=== PATIENT | female | born 1990 | race Caucasian/White ===

== ENCOUNTER → 2017-10-17 | Outpatient (CLI) | payer BC ==
--- NOTE | 2017-10-17 13:44 | Diagnostic Imaging Report ---
INDICATION: survey. TECHNIQUE: Multiple real-time grayscale images were obtained over the gravid uterus. COMPARISON: None FINDINGS: There is a single live fetus in a transverse presentation with head to the maternal right. Placenta is anterior. The amniotic fluid volume is normal. heart rate was recorded at 147 beats per minute. survey demonstrates kidneys, bladder, and stomach to be unremarkable. brain is unremarkable. There is a three-vessel cord with normal cord insertion. The spine is unremarkable. The four-chamber heart view is not well seen on today's study. Biometrical measurements are as follows: Biparietal 4.83 cm, age 20 weeks 5 days. Head circumference 17.82 cm, age 20 weeks 2 days. Abdominal circumference 15.60 cm, age 20 weeks 6 days. Femur length 3.70 cm, age 21 weeks 6 days. Sonographic estimate age: 21 weeks 0 days. Sonographic estimated date of delivery: 02/27/18. Estimated Weight: 400 gm (+/- 58 gm). LMP percentile: 82%. heart rate: 147 beats per minute. number: 1 of 1. IMPRESSION: Single live IUP of approximately 21 weeks 0 days gestational age. The estimated date of confinement sonographically is 02/27/2018. No complicating features are seen. survey is unremarkable, although the four-chamber heart view is not well seen on today's study. Followup ultrasound is recommended. Dictated by: Dictated on workstation # [id number]
== END ==
LOC: RAD 09:51
PROVIDERS: ATTEND Obstetrics & Gynecology
DX: Z36.89 Encounter for other specified antenatal screening (principal); Z3A.21 21 weeks gestation of pregnancy
CPT/HCPCS: 76805

== ENCOUNTER 2018-03-07 06:26 | Inpatient (IN) | payer BC ==
[~2018-03-07] VITALS: Ht 149.9 cm; Wt 87.6 kg
[2018-03-07] VITALS (62 sets, daily range): BP systolic 103–157; BP diastolic 55–99
[2018-03-07] MEDS ORDERED: PREN-142 PO (06:29)
[2018-03-07] MEDS ORDERED: FAMO40TA72 PO (06:29)
[2018-03-07] MEDS: D5 LR IV SOLUTION 1,000 ML IV SCH ×2 (07:53→15:12)
[2018-03-07 08:07] LABS: BASOPHILS % (AUTO) 0 % (0-10); EOSINOPHILS # (AUTO) 0.1 10^3/uL (0.0-0.3); EOSINOPHILS % (AUTO) 1 % (0-10); HEMATOCRIT 35 % (35-52); HEMOGLOBIN 11.9 G/DL (11.5-16.0); LYMPHOCYTES # (AUTO) 3.2 X 10^3 (1.0-4.0); LYMPHOCYTES % (AUTO) 24 % (12-44); MEAN CORPUSCULAR HEMOGLOBIN 30 PG (25-34); MEAN CORPUSCULAR HGB CONC 34 G/DL (32-36); MEAN CORPUSCULAR VOLUME 87 FL (80-99); MEAN PLATELET VOLUME 11.4 FL (7.4-10.4); MONOCYTES # (AUTO) 1.3 X 10^3 (0.0-1.0); MONOCYTES % (AUTO) 10 % (0-12); NEUTROPHILS # (AUTO) 8.9 X 10^3 (1.8-7.8); NEUTROPHILS % (AUTO) 66 % (42-75); PLATELET COUNT 286 10^3/uL (130-400); RED BLOOD COUNT 4.02 10^6/uL (4.35-5.85); WHITE BLOOD COUNT 13.6 10^3/uL (4.3-11.0)
[2018-03-07] MEDS ORDERED: OXYTOCIN/NORMAL SALINE 500 ML IV SCH (08:30)
--- NOTE | 2018-03-07 08:45 | History & Physical-OB ---
OB - Chief Complaint & HPI Date/Time Date of Admission: Date of Admission: Mar 07, 2018 at 6:26 am Date seen by a Provider: Mar 07, 2018 Time Seen by a Provider: 08:30 Chief Complaint/History OB-Reason for Admission/Chief: Induction of Labor Hx : 1 Hx Para: 0 Expected Date of Delivery: Mar 03, 2018 Gestational Age in Weeks: 40 Gestational Age in Days: 4 Indication for induction: post dates Admission Nurse Assessment Rev: Yes History of Labs O pos Antibody neg RI RPR NR HBsAg NR HIV NR GC neg GBS neg Allergies and Home Medications Allergies Coded Allergies: No Known Drug Allergies (Unverified , 03/07/18) Home Medications Famotidine 40 Mg Tablet, 40 MG PO DAILY, (Reported) Vit No.124/Iron/FA 1 Each Tablet, 1 EACH PO DAILY, (Reported) Patient Home Medication List Home Medication List Reviewed: Yes OB - History Hx of Present Care: Yes Ultrasounds: Normal mid trimester US Obstetrical Complications: None Medical Complications: None Delivery History Adverse Rxn to Tranfusion: No Patient Past Medical History n/a Social History/Family History Recent Infectious Disease Expo: No Alcohol Use: Denies Use Recreational Drug Use: No OB - Admission Exam Physical Exam Vitals: Vital Signs 03/07/18 06:30 Temp 98.5 Pulse 100 Resp 18 B/P (MAP) 123/75 (91) HEENT: NCAT Heart: Rhythm Normal Lungs: Clear Abdomen: Gravid Extremities: Normal Reflexes: Normal Cervical Dilatation: 3cm Effacement: 75% Station: -2 Membranes: Intact Heart Rate: 130's Accelerations: Accelerations Present Decelerations: No Decelerations Short Term Variability: Present Supply Technician Variability: Average (6-25) Contractions on Admission: 6-10 Minutes Apart Intensity: Mild Walls Scoring Tool (Modified) Dilation (cm): 3-4cm (2) Effacement (%): 51-79% (2) Descent/Station: -2 (1) Cervix Consistency: Soft (2) Cervix Position: Anterior (2) Subtract 1 point for: Nulliparity (-1) Walls Score: 8 Labs Laboratory Tests Test 03/07/18 06:34 Range/Units White Blood Count 13.6 H 4.3-11.0 10^3/uL Red Blood Count 4.02 L 4.35-5.85 10^6/uL Hemoglobin 11.9 11.5-16.0 G/DL Hematocrit 35 35-52 % Mean Corpuscular Volume 87 80-99 FL Mean Corpuscular Hemoglobin 30 25-34 PG Mean Corpuscular Hemoglobin Concent 34 32-36 G/DL Red Cell Distribution Width 14.0 10.0-14.5 % Platelet Count 286 130-400 10^3/uL Mean Platelet Volume 11.4 H 7.4-10.4 FL Neutrophils (%) (Auto) 66 42-75 % Lymphocytes (%) (Auto) 24 12-44 % Monocytes (%) (Auto) 10 0-12 % Eosinophils (%) (Auto) 1 0-10 % Basophils (%) (Auto) 0 0-10 % Neutrophils # (Auto) 8.9 H 1.8-7.8 X 10^3 Lymphocytes # (Auto) 3.2 1.0-4.0 X 10^3 Monocytes # (Auto) 1.3 H 0.0-1.0 X 10^3 Eosinophils # (Auto) 0.1 0.0-0.3 10^3/uL Basophils # (Auto) 0.0 0.0-0.1 10^3/uL OB - Assessment/Plan/Diagnosis Assessment Assessment: induction of labor Admission Dx 27 yo @ 40.4 weeks. Post dates GBS neg Admission Status: Inpatient Order (span 2 midnights) Reason for Inpatient Admission: induction of labor Postdates Plan Plan: Induction Induction Method: CHICO JIMENEZ DO Mar 07, 2018 8:45 am
[2018-03-07] MEDS ORDERED: SUFENTA 0.6MCG/ML BUPIVA 0.125 100 ML ONE (09:06)
[2018-03-07] MEDS ORDERED: BUPIVACAINE 0.5% 30 ML (SENSORCAINE) VIAL ONE ×2 (09:40→21:34)
[2018-03-07] MEDS ORDERED: fentaNYL INJECTION 100 MCG/2 ML AMP ONE ×2 (09:40→21:25)
[2018-03-07] MEDS ORDERED: FLU QUADRIvalent (5+ YOA) 2018-2019 (AFLURIA) 0.5 ML IM ONE (10:00)
[2018-03-07] MEDS: EPIDURAL (SUFENTA 0.6MCG/ML BUPIVA 0.125%) 100 ML BAG EPI SCH ×2 (10:08→19:15)
[2018-03-07] MEDS ORDERED: LACTATED RINGERS 1,000 ML IV ONE (10:13)
[2018-03-07] MEDS ORDERED: CATHETER FLUSH 10 ML SYR IV PRN ×2 (10:15→20:30)
[2018-03-07] MEDS ORDERED: NALOXONE 0.4 MG/ML 1 ML (NARCAN) VIAL IV PRN (10:15)
[2018-03-07] MEDS: CATHETER FLUSH 10 ML SYR IV SCH (17:05)
[2018-03-07] MEDS ORDERED: ONDANSETRON 4 MG/2 ML (SDV) Z0FRAN ONE ×2 (19:18→20:50)
[2018-03-07] MEDS ORDERED: ONDANSETRON 4 MG/2 ML (SDV) Z0FRAN IV ONE (19:24)
[2018-03-07] MEDS ORDERED: METOCLOPRAMIDE INJ 10 MG/2 ML (REGLAN) ONE (20:08)
[2018-03-07] MEDS ORDERED: FAMOTIDINE 20MG/2ML IV (PEPCID) ONE (20:09)
[2018-03-07] MEDS ORDERED: CITRIC ACID/SOB CIT (BICITRA) 30 ML UDC ONE (20:09)
[2018-03-07] MEDS ORDERED: ceFAZolin 2 GM IV Premixed 50 ML ONE (20:10)
[2018-03-07] MEDS ORDERED: MEASLES,MUMPS,RUBELLA 1 EA INJ SC SCH (20:15)
[2018-03-07] MEDS ORDERED: HYDROmorphone 2 MG/ML VIAL (DILAUDID) IV PRN (20:15)
[2018-03-07] MEDS ORDERED: ONDANSETRON 4 MG/2 ML (SDV) Z0FRAN IVP PRN (20:15)
[2018-03-07] MEDS ORDERED: TETANUS,DIPTH,PERTUSS P/F (BOOSTRIX) 0.5 ML VIAL IM SCH (20:15)
[2018-03-07] MEDS ORDERED: LACTATED RINGERS 1,000 ML IV PRN (20:19)
--- NOTE | 2018-03-07 20:20 | Progress Note-Standard ---
Standard Progress Note Progress Notes/Assess & Plan Date Seen by a Provider: Mar 07, 2018 Time Seen by a Provider: 20:16 Progress/Assessment & Plan Patient admitted this morning for induction of labor for postdates, 2. She had AROM and Pitocin augmentation started this AM, and received an epidural around 10am this morning. She progressed to 9-10 with a reducible cervix at 1800, she was let to labor down with 2-3 ctxs min. At 1999 she was reevaluated and found to have made no cervical change and was feeling very uncomfortable, epidural had been rebolused several times. There was also significant labial swelling noted at this point consistent with CPD. I discussed with the patient and her family proceeding with PLTCS, risk involved discussed, vs waiting delivery. All questions answered. Will proceed once OR staff here and available. CHICO SCHULTZ DO Mar 07, 2018 20:20
--- NOTE | 2018-03-07 20:21 | Discharge Inst-Women's Service ---
Discharge Inst-Women's Serv Depart Medication/Instructions New, Converted or Re-Newed RX: RX on Chart Final Diagnosis POD 2 PLTCS Consults/Follow Up Additional Follow Up: Yes Orders/Referrals Dr. Higgins in 7-10 days and in 6 weeks Activity Activity: Activity as Tolerated Driving Instructions: No Driving for 1 Week NO SMOKING: NO SMOKING Nothing Inside Vagina: No Douching, No [place], No Tampons Diet Discharge Diet: No Restrictions Symptoms to Report to : Bleeding Excessive, Pain Increased, Fever Over 101 Degrees F, Vaginal Bleeding Increase, Questions/Concerns For Any Problems or Questions: Contact Your Physician Skin/Wound Care Infection Signs and Symptoms: Increased Redness, Foul Odor of Wound, Increased Drainage, Skin Itchy or Has a Rash, Increased Swelling, Temperature Above 101 F Operative Area Clean and Dry: Keep Incision Clean/Dry Stitches/[place]/Dermabond: Dermabond, Care of Stitches Bathing Instructions: CHICO Murcia DO Mar 07, 2018 20:21
[2018-03-07] MEDS ORDERED: IBUP-844 PO (20:22)
[2018-03-07] MEDS ORDERED: DOCU100C37 PO (20:22)
[2018-03-07] MEDS ORDERED: ACHD5005 PO (20:22)
[2018-03-07] MEDS ORDERED: CITRIC ACID/SOB CIT (BICITRA) 30 ML UDC PO ONE (20:30)
[2018-03-07] MEDS ORDERED: METOCLOPRAMIDE INJ 10 MG/2 ML (REGLAN) IV ONE (20:30)
[2018-03-07] MEDS ORDERED: FAMOTIDINE 20MG/2ML IV (PEPCID) IV ONE (20:30)
[2018-03-07] MEDS ORDERED: LIDOCAINE PF 2% 5 ML (XYLOCAINE) VIAL ONE (20:39)
[2018-03-07] MEDS ORDERED: OXYTOCIN/NORMAL SALINE 1,000 ML IV ONE (20:47)
[2018-03-07] MEDS ORDERED: KETAMINE HCL 100 MG/ML 5 ML VIAL ONE (20:54)
[2018-03-07] MEDS ORDERED: 0.9% SODIUM CHLORIDE PF INJ 20 ML VIAL ONE (21:28)
[2018-03-07] MEDS ORDERED: CATHETER FLUSH 10 ML SYR IV SCH (22:00)
--- NOTE | 2018-03-07 22:46 | OPERATIVE REPORT ---
DATE OF SERVICE: PREOPERATIVE DIAGNOSES: 1. A 27-year-old G1, P0 at 40 weeks and 3 days gestation. 2. Cephalopelvic disproportion and failure to descend. POSTOPERATIVE DIAGNOSES: 1. A 27-year-old G1, P0 at 40 weeks and 3 days gestation. 2. Cephalopelvic disproportion and failure to descend. 3. Occiput posterior. PROCEDURE: Primary low transverse section. SURGEON: Willie Higgins DO ANESTHESIA: Epidural, which was bolused. ESTIMATED BLOOD LOSS: 500 mL. URINE OUTPUT: 200 mL, clear at the end of the procedure. FLUIDS: 1100 mL of lactate Ringer's solution. FINDINGS: Live female infant weighing 8 pounds 10 ounces, Apgars of 8 and 9. Grossly normal appearing uterus, bilateral fallopian tubes and ovaries. INDICATIONS FOR PROCEDURE: This 27-year-old female is a patient was brought in for induction of labor for postdates and found to have a favorable cervix and induction time. AROM was performed and Pitocin augmentation was started this morning. She progressed all the way to 9 to 10 cm dilatation; however, there was no descent in the vertex. Despite two hours of allowing to labor down, there was no change and there was also some labial swelling noted. I had suspicion for cephalopelvic disproportion and an asynclitic presentation. I discussed with the patient and proceeded with . Risks of procedure were discussed with the patient in detail including risks of bleeding, infection, damage to surrounding structures including, but not limited to bowel, bladder, ureter, kidneys, postoperative and preoperative expectations, postoperative recovery time frame, need for blood transfusion and risk of anesthesia were all discussed with the patient. After all of her questions were answered, consent was obtained. The patient was taken to the operating room. OPERATIVE REPORT IN DETAIL: Once in the operating room, epidural anesthesia was found to be adequate. She was placed in supine position with leftward tilt, prepped and draped in normal sterile fashion. A timeout was performed. A Pfannenstiel skin incision was then made with a knife and carried down to the underlying fascia using Bovie cautery. Fascial incision extended laterally using Bovie cautery. Superior aspect of the fascial incision was then grasped with Brenda clamps, tented up and dissected off the underlying rectus muscles. The inferior aspect of the fascial incision was then grasped with Brenda clamps, tented up and dissected off the underlying rectus muscles. Rectus muscle was then dissected down the midline using Trejo scissors, which exposed the peritoneum which I entered bluntly and extended using blunt traction. I then placed the Mike ring retractor in the peritoneal incision, which offered excellent lateral sidewall retraction. I make an incision of the vesicouterine peritoneum and bluntly dissected off the lower uterine segment. I proceeded with myotomy until membranes were visualized at which point, I extended the uterine incision laterally and superiorly using bandage scissors. Iatrogenic rupture of membranes was performed through the myotomy incision. The was found in the occiput posterior presentation. The surgeon's hands then placed beneath the infant's head. With gentle fundal pressure, the 's head was elevated up to the incision where it was delivered. The nares and oropharynx were then bulb suctioned. Anterior and posterior shoulders were delivered. Infant was then brought to the operative field where the cord was doubly clamped and cut. was handed off to waiting nurses in attendance. Cord blood was collected. A 3-vessel cord with intact placenta delivered spontaneously thereafter. IV Pitocin was initiated to facilitate uterine contraction. Uterus fundus becomes firmer with bimanual massage. The uterus was then exteriorized and cleared of all endometrial clots and debris. The uterus was then closed using 0 Vicryl suture in a running locked fashion. A second layer of imbricating 0 Monocryl was placed. Excellent hemostasis was noted after doing this. I then placed the uterus back into the pelvis and copiously irrigated the pelvis using normal saline. There is no active bleeding noted from any of my dissection planes. I then placed Interceed antiadhesive over low transverse incision and proceeded with closing the peritoneum using 3-0 Vicryl suture in running fashion. The rectus muscle was reapproximated using 3-0 Vicryl suture in interrupted fashion. The fascia reapproximated using 0 Vicryl suture in running fashion. Subcutaneous tissue reapproximated using 3-0 plain in a running subcutaneous stitch and the skin reapproximated using 4-0 Monocryl in running subcuticular. Dermabond was applied to the incision and sterile dressing with adhesive white tape. The patient tolerated the procedure well and sent to recovery area in stable condition. Lap and sponge count correct at the end of the procedure. Instrument counts correct as well. Two grams of Ancef given preoperatively for infection prophylaxis. Job ID: [id number] DocumentID: [id number] Dictated Date: 03/07/2018 21:43:15 Supervisor [place] Date: 03/07/2018 22:45:11 Dictated By: DO ESTELLA CALDERA
[2018-03-08 01:00] VITALS: BP 134/81
[2018-03-08] MEDS: HYDROcodone/APAP 5 MG/325 MG (LORTAB) TAB PO PRN ×5 (01:01→19:47)
[2018-03-08] MEDS: KETOROLAC 30 MG/ML VIAL IVP SCH ×3 (03:29→14:47)
[2018-03-08 04:00] VITALS: BP 127/73
[2018-03-08 06:08] LABS: BASOPHILS % (AUTO) 0 % (0-10); EOSINOPHILS % (AUTO) 0 % (0-10); HEMATOCRIT 29 % (35-52); HEMOGLOBIN 10.1 G/DL (11.5-16.0); LYMPHOCYTES # (AUTO) 3.3 X 10^3 (1.0-4.0); LYMPHOCYTES % (AUTO) 17 % (12-44); MEAN CORPUSCULAR HEMOGLOBIN 30 PG (25-34); MEAN CORPUSCULAR HGB CONC 35 G/DL (32-36); MEAN CORPUSCULAR VOLUME 87 FL (80-99); MEAN PLATELET VOLUME 11.1 FL (7.4-10.4); MONOCYTES # (AUTO) 2.2 X 10^3 (0.0-1.0); MONOCYTES % (AUTO) 12 % (0-12); NEUTROPHILS # (AUTO) 13.2 X 10^3 (1.8-7.8); NEUTROPHILS % (AUTO) 71 % (42-75); PLATELET COUNT 227 10^3/uL (130-400); RED BLOOD COUNT 3.34 10^6/uL (4.35-5.85); RED CELL DISTRIBUTION WIDTH 13.6 % (10.0-14.5); WHITE BLOOD COUNT 18.8 10^3/uL (4.3-11.0)
[2018-03-08 07:20] VITALS: BP 117/78
[2018-03-08] MEDS: DOCUSATE SODIUM 100 MG (COLACE) CAP PO SCH ×3 (07:45→19:47)
--- NOTE | 2018-03-08 08:25 | Anesthesia-Regional Post-Op ---
Regional Patient Condition Mental Status: Alert, Oriented x3 Circulation: Same as Pre-Op Headache: Absent Sensation: Full Recovery Motor Block: Absent Post Op Complications Complications None Follow Up Care/Instructions Patient Instructions None needed. Anesthesia/Patient Condition Patient is doing well, no complaints, stable vital signs, no apparent adverse anesthesia problems. No complications reported per nursing. JANINE MAGAÑA CRNA Mar 08, 2018 08:25
--- NOTE | 2018-03-08 09:19 | Postpartum Progress Note ---
Note Note Day # 1 Subjective: Patient is without complaints. Ambulating, voiding. Tolerating a regular diet without nausea or vomiting. Normal lochia. Pain is well controlled with oral pain medications. Objective: Vital Sign - Last 24 Hours 03/07/18 03/07/18 03/07/18 03/07/18 09:30 09:45 09:50 09:55 Pulse 78 83 87 85 Resp 18 18 B/P (MAP) 131/84 (100) 157/89 (111) 144/86 (105) 141/84 (103) Pulse Ox 100 99 98 03/07/18 03/07/18 03/07/18 03/07/18 10:00 10:03 10:06 10:15 Pulse 90 93 90 96 Resp 18 18 B/P (MAP) 142/84 (103) 135/86 (102) 135/75 (95) 129/73 (91) Pulse Ox 99 98 98 99 03/07/18 03/07/18 03/07/18 03/07/18 10:17 10:18 10:19 10:20 Pulse 82 90 70 B/P (MAP) 103/55 (71) 113/59 (77) 129/57 (81) 138/74 (95) Pulse Ox 98 98 98 03/07/18 03/07/18 03/07/18 03/07/18 10:23 10:26 10:30 10:33 Temp 97.7 Pulse 74 84 75 70 Resp 18 B/P (MAP) 129/74 (92) 127/74 (91) 126/77 (93) 126/77 (93) Pulse Ox 98 98 99 98 03/07/18 03/07/18 03/07/18 03/07/18 10:45 10:50 10:55 11:00 Pulse 70 68 73 75 Resp 18 18 B/P (MAP) 132/83 (99) 130/76 (94) 109/71 (84) 114/77 (89) Pulse Ox 99 98 100 99 03/07/18 03/07/18 03/07/18 03/07/18 11:05 11:10 11:15 11:30 Pulse 67 74 75 71 Resp 18 18 B/P (MAP) 121/78 (92) 119/76 (90) 119/75 (90) 138/80 (99) Pulse Ox 99 99 100 99 03/07/18 03/07/18 03/07/18 03/07/18 11:45 12:00 12:15 12:30 Temp 97.9 Pulse 71 63 64 Resp 18 18 18 B/P (MAP) 134/83 (100) 143/80 (101) 126/79 (95) Pulse Ox 99 99 100 03/07/18 03/07/18 03/07/18 03/07/18 12:45 13:00 13:15 13:30 Pulse 67 69 69 69 Resp 18 18 18 18 B/P (MAP) 140/76 (97) 123/75 (91) 118/73 (88) 124/75 (91) Pulse Ox 99 99 99 99 03/07/18 03/07/18 03/07/18 03/07/18 13:45 14:00 14:15 14:30 Temp 98.6 Pulse 78 93 86 97 Resp 18 18 18 18 B/P (MAP) 127/76 (93) 126/77 (93) 133/85 (101) 133/85 (101) Pulse Ox 97 98 99 99 03/07/18 03/07/18 03/07/18 03/07/18 14:45 15:00 15:15 15:30 Pulse 97 97 79 93 Resp 18 18 18 18 B/P (MAP) 133/85 (101) 133/85 (101) 125/76 (92) 131/79 (96) Pulse Ox 99 100 99 99 03/07/18 03/07/18 03/07/18 03/07/18 15:45 16:00 16:15 16:30 Pulse 86 82 85 78 Resp 18 18 18 18 B/P (MAP) 142/79 (100) 113/70 (84) 120/64 (82) 121/63 (82) Pulse Ox 98 100 100 99 03/07/18 03/07/18 03/07/18 03/07/18 16:45 17:00 17:15 17:30 Temp 99.0 Pulse 74 73 79 74 Resp 18 18 18 18 B/P (MAP) 110/63 (79) 128/73 (91) 136/76 (96) 140/80 (100) Pulse Ox 99 99 99 99 10/3/18 10/3/18 10/3/18 10/3/18 17:45 18:00 18:15 18:30 Pulse 106 88 90 118 Resp 18 18 18 18 B/P (MAP) 135/89 (104) 136/90 (105) 145/90 (108) Pulse Ox 99 99 03/07/18 03/07/18 03/07/18 03/07/18 18:45 19:00 19:05 19:20 Temp 98.2 Pulse 110 90 Resp 18 18 B/P (MAP) 144/95 (111) 137/91 (106) 03/07/18 03/07/18 03/07/18 03/07/18 19:35 19:50 20:05 20:20 Temp 98.7 Pulse 103 90 113 83 Resp 18 18 18 18 B/P (MAP) 135/73 (93) 133/82 (99) 135/99 (111) 142/91 (108) 03/07/18 03/07/18 03/08/18 03/08/18 20:35 20:50 00:01 01:00 Temp 98.6 Pulse 113 83 97 Resp 18 18 18 B/P (MAP) 138/89 (105) 132/78 (96) 134/81 (98) Pulse Ox 98 O2 Delivery Room Air 03/08/18 03/08/18 04:00 07:20 Temp 97.1 97.8 Pulse 80 85 Resp 18 18 B/P (MAP) 127/73 (91) 117/78 (91) Pulse Ox 98 100 Intake and Output 03/07/18 03/07/18 03/08/18 15:00 23:00 07:00 Intake Total 1000 ml 1050 ml 500 ml Output Total 550 ml 700 ml Balance 1000 ml 500 ml -200 ml Physical Exam: General - Alert and oriented, no apparent distress Abdomen - Soft, appropriately tender to palpation, non-distended, fundus firm at umbilicus Extremities - no edema, negative Elieser's bilaterally Incision- c/d/i Assessment: POD 1 PLTCS Acute blood loss anemia Plan: Routine care. Encourage breast feeding. Encourage ambulation. Ferrous sulfate supplementation. Plan for discharge tomorrow Vitals - Labs Vital Signs - I&O Vital Signs Date Time Temp Pulse Resp B/P (MAP) Pulse Ox O2 Delivery O2 Flow Rate FiO2 03/08/18 07:20 97.8 85 18 117/78 (91) 100 03/08/18 04:00 97.1 80 18 127/73 (91) 98 03/08/18 01:00 98.6 97 18 134/81 (98) 98 03/08/18 00:01 Room Air 03/07/18 20:50 83 18 132/78 (96) 03/07/18 20:35 113 18 138/89 (105) 03/07/18 20:20 83 18 142/91 (108) 03/07/18 20:05 113 18 135/99 (111) 03/07/18 19:50 90 18 133/82 (99) 03/07/18 19:35 98.7 103 18 135/73 (93) 03/07/18 19:20 90 18 137/91 (106) 03/07/18 19:05 110 18 144/95 (111) 03/07/18 19:00 03/07/18 18:45 98.2 03/07/18 18:30 118 18 145/90 (108) 03/07/18 18:15 90 18 136/90 (105) 03/07/18 18:00 88 18 135/89 (104) 99 03/07/18 17:45 106 18 99 03/07/18 17:30 74 18 140/80 (100) 99 03/07/18 17:15 79 18 136/76 (96) 99 03/07/18 17:00 73 18 128/73 (91) 99 03/07/18 16:45 99.0 74 18 110/63 (79) 99 03/07/18 16:30 78 18 121/63 (82) 99 03/07/18 16:15 85 18 120/64 (82) 100 03/07/18 16:00 82 18 113/70 (84) 100 03/07/18 15:45 86 18 142/79 (100) 98 03/07/18 15:30 93 18 131/79 (96) 99 03/07/18 15:15 79 18 125/76 (92) 99 03/07/18 15:00 97 18 133/85 (101) 100 03/07/18 14:45 97 18 133/85 (101) 99 03/07/18 14:30 97 18 133/85 (101) 99 03/07/18 14:15 98.6 86 18 133/85 (101) 99 03/07/18 14:00 93 18 126/77 (93) 98 03/07/18 13:45 78 18 127/76 (93) 97 03/07/18 13:30 69 18 124/75 (91) 99 03/07/18 13:15 69 18 118/73 (88) 99 03/07/18 13:00 69 18 123/75 (91) 99 03/07/18 12:45 67 18 140/76 (97) 99 03/07/18 12:30 64 18 126/79 (95) 100 03/07/18 12:15 97.9 03/07/18 12:00 63 18 143/80 (101) 99 03/07/18 11:45 71 18 134/83 (100) 99 03/07/18 11:30 71 18 138/80 (99) 99 03/07/18 11:15 75 18 119/75 (90) 100 03/07/18 11:10 74 119/76 (90) 99 03/07/18 11:05 67 121/78 (92) 99 03/07/18 11:00 75 18 114/77 (89) 99 03/07/18 10:55 73 109/71 (84) 100 03/07/18 10:50 68 130/76 (94) 98 03/07/18 10:45 70 18 132/83 (99) 99 03/07/18 10:33 70 126/77 (93) 98 03/07/18 10:30 97.7 75 18 126/77 (93) 99 03/07/18 10:26 84 127/74 (91) 98 03/07/18 10:23 74 129/74 (92) 98 03/07/18 10:20 70 138/74 (95) 98 03/07/18 10:19 129/57 (81) 03/07/18 10:18 90 113/59 (77) 98 03/07/18 10:17 82 103/55 (71) 98 03/07/18 10:15 96 18 129/73 (91) 99 03/07/18 10:06 90 135/75 (95) 98 03/07/18 10:03 93 135/86 (102) 98 03/07/18 10:00 90 18 142/84 (103) 99 03/07/18 09:55 85 141/84 (103) 98 03/07/18 09:50 87 144/86 (105) 99 03/07/18 09:45 83 18 157/89 (111) 100 03/07/18 09:30 78 18 131/84 (100) I & O 03/08/18 07:00 Intake Total 2550 ml Output Total 1250 ml Balance 1300 ml Labs Laboratory Tests 03/08/18 05:26: White Blood Count 18.8H, Red Blood Count 3.34L, Hemoglobin 10.1L, Hematocrit 29L , Mean Corpuscular Volume 87, Mean Corpuscular Hemoglobin 30, Mean Corpuscular Hemoglobin Concent 35, Red Cell Distribution Width 13.6, Platelet Count 227, Mean Platelet Volume 11.1H, Neutrophils (%) (Auto) 71, Lymphocytes (%) (Auto) 17 , Monocytes (%) (Auto) 12, Eosinophils (%) (Auto) 0, Basophils (%) (Auto) 0, Neutrophils # (Auto) 13.2H, Lymphocytes # (Auto) 3.3, Monocytes # (Auto) 2.2H, Eosinophils # (Auto) 0.0, Basophils # (Auto) 0.0 CHICO SCHULTZ DO Mar 08, 2018 9:19 am
[2018-03-08] MEDS: OXYTOCIN/NORMAL SALINE 500 ML IV SCH ×2 (09:28→14:47)
[2018-03-08] MEDS: CATHETER FLUSH 10 ML SYR IV SCH (09:29)
[2018-03-08 12:27] VITALS: BP 129/87
[2018-03-08] MEDS ORDERED: IBUPROFEN 600 MG (MOTRIN) TAB PO ONE (14:56)
[2018-03-08] MEDS: IBUPROFEN 600 MG (MOTRIN) TAB PO SCH ×2 (15:02→21:59)
[2018-03-08 18:45] VITALS: BP 116/81
[2018-03-08] MEDS ORDERED: ceFAZolin 2 GM IV Premixed 50 ML IV ONE (20:15)
[2018-03-08 22:00] VITALS: BP 118/73
[2018-03-09 03:30] VITALS: BP 109/68
[2018-03-09] MEDS: IBUPROFEN 600 MG (MOTRIN) TAB PO SCH ×2 (03:35→11:04)
[2018-03-09] MEDS: HYDROcodone/APAP 5 MG/325 MG (LORTAB) TAB PO PRN (05:47)
--- NOTE | 2018-03-09 07:25 | Postpartum Progress Note ---
Note Note Day # 2 Subjective: Patient is without complaints. Ambulating, voiding. Tolerating a regular diet without nausea or vomiting. Normal lochia. Pain is well controlled with oral pain medications. Objective: Vital Sign - Last 24 Hours 03/08/18 03/08/18 03/08/18 03/09/18 12:27 18:45 22:00 03:30 Temp 98.3 97.5 97.9 98.9 Pulse 84 74 80 87 Resp 18 18 18 18 B/P (MAP) 129/87 (101) 116/81 (93) 118/73 (88) 109/68 (82) Pulse Ox 100 98 O2 Delivery Room Air Room Air Physical Exam: General - Alert and oriented, no apparent distress Abdomen - Soft, appropriately tender to palpation, non-distended, fundus firm at umbilicus Extremities - no edema, negative Elieser's bilaterally Incision- c/d/i Assessment: POD 2 PLTCS Acute blood loss anemia Plan: Routine care. Encourage breast feeding. Encourage ambulation. Ferrous sulfate supplementation. Plan for discharge today Vitals - Labs Vital Signs - I&O Vital Signs Date Time Temp Pulse Resp B/P (MAP) Pulse Ox O2 Delivery O2 Flow Rate FiO2 03/09/18 03:30 98.9 87 18 109/68 (82) 03/08/18 22:00 97.9 80 18 118/73 (88) Room Air 03/08/18 18:45 97.5 74 18 116/81 (93) 98 Room Air 03/08/18 12:27 98.3 84 18 129/87 (101) 100 CHICO SCHULTZ DO Mar 09, 2018 7:25 am
[2018-03-09 08:40] VITALS: BP 121/78
[2018-03-09] MEDS: DOCUSATE SODIUM 100 MG (COLACE) CAP PO SCH (08:42)
== END 2018-03-09 12:10 | disposition home or self-care (01) | DRG 787 ==
LOC: LDRP 06:26
PROVIDERS: ADMIT Obstetrics & Gynecology; ATTEND Obstetrics & Gynecology
PROC: 10907ZC Drainage of Amniotic Fluid, Therapeutic from Products of Conception, Via Natural or Artificial Opening (ICD-10-PCS; 2018-03-07)
PROC: 10D00Z1 Extraction of Products of Conception, Low, Open Approach (ICD-10-PCS; principal; 2018-03-07 21:00)
DX: O48.0 Post-term pregnancy (principal); O33.9 Maternal care for disproportion, unspecified; O64.0XX0 Obstructed labor due to incomplete rotation of fetal head, not applicable or unspecified; O90.81 Anemia of the puerperium; D62 Acute posthemorrhagic anemia; Z37.0 Single live birth; Z3A.40 40 weeks gestation of pregnancy
CPT/HCPCS: 36415; 85025; 86850; 86900; 86901; 94664

== ENCOUNTER → 2021-05-17 | Outpatient (CLI) | payer BC ==
[~2021-05-17] MED LIST: ACHD5005 PO; DOCU100C37 PO; FAMO40TA72 PO; IBUP-844 PO; PREN-142 PO
--- NOTE | 2021-05-17 17:50 | Diagnostic Imaging Report ---
INDICATION: Normal supervision of . Anatomy scan. TECHNIQUE: Multiple real-time grayscale images were obtained over the gravid uterus. COMPARISON: None. FINDINGS: A single live intrauterine gestation is visualized in cephalic presentation. The placenta is posterior and not low lying. heart tones measure 144 BPM. The cervix is closed and measures 5.7 cm in length. The CANDICE visually has a normal appearance, although no measurements were provided by the delivery motorcycle driver. The bilateral adnexa have a normal appearance. The kidneys, bladder, stomach, ventricles, spine, and cord insertion are visualized and have a normal appearance. A two-vessel cord is noted. The four-chamber heart was not well seen due to position. Biometrical measurements are as follows: Biparietal 4.8 cm, age 20 weeks 4 days. Head circumference 17.77 cm, age 20 weeks 2 days. Abdominal circumference 14.79 cm, age 20 weeks 1 days. Femur length 3.35 cm, age 20 weeks 4 days. Sonographic estimate age: 20 weeks 3 days. Sonographic estimated date of delivery: 10/01/2021. Estimated Weight: 343 gm (+/- 50 gm). LMP percentile: 14%. heart rate: 144 beats per minute. number: 1 of 1. IMPRESSION: 1. Single live intrauterine gestation measuring 20 weeks 3 days with an estimated due date of 10/01/2021. These are within range of the clinical dates. 2. The four-chamber heart is not well seen due to position. A two-vessel umbilical cord is noted. The remainder of the anatomy is unremarkable. Recommend continued follow-up as indicated. Dictated by: Dictated on workstation # [id number]
== END ==
LOC: RAD 14:30
PROVIDERS: ATTEND Obstetrics & Gynecology
DX: Z34.02 Encounter for supervision of normal first pregnancy, second trimester (principal); Z3A.20 20 weeks gestation of pregnancy
CPT/HCPCS: 76805

== ENCOUNTER → 2021-08-18 | Outpatient (CLI) | payer BC ==
--- NOTE | 2021-08-18 10:13 | Diagnostic Imaging Report ---
INDICATION: Follow-up for growth. History of two-vessel cord. TECHNIQUE: Multiple real-time grayscale images were obtained over the gravid uterus. COMPARISON: None FINDINGS: There is single live intrauterine fetus vertex presentation. The survey was not performed. heart rate 152 bpm. Cervical length is 6.4 cm. Cervix is not dilated. Amniotic fluid index is 10 cm. Placenta is posterior and not low. biophysical profile performed with motion noted and breathing. Biometrical measurements are as follows: Biparietal 8.52 cm, age 34 weeks 3 days. Head circumference 31.40 cm, age 35 weeks 2 days. Abdominal circumference 30.27 cm, age 34 weeks 2 days. Femur length 6.65 cm, age 34 weeks 2 days. Sonographic estimate age: 34 weeks 4 days. Sonographic estimated date of delivery: 09/25/2021. Estimated Weight: 2407 gm (+/- 352 gm). LMP percentile: 46%. heart rate: 152 beats per minute. number: 1 of 1. IMPRESSION: Normal biophysical profile scoring 8 of potential 8 points. Two-vessel umbilical cord again demonstrated. Dictated by: Dictated on workstation # [id number]
== END ==
LOC: RAD 09:00
PROVIDERS: ATTEND Nurse Practitioner Women's Health
DX: Q27.8 Other specified congenital malformations of peripheral vascular system (principal)
CPT/HCPCS: 76805; 76819

== ENCOUNTER 2021-09-06 05:30 | Outpatient (CLI) | payer BC ==
[~2021-09-06] VITALS: Ht 152.4 cm; Wt 85.0 kg
== END 2021-09-09 09:14 ==
LOC: PREOP 05:30
PROVIDERS: ATTEND Obstetrics & Gynecology
DX: Z01.818 Encounter for other preprocedural examination (principal)

== ENCOUNTER → 2023-05-02 | Outpatient (CLI) | payer OTHER ==
--- NOTE | 2023-05-02 10:48 | Diagnostic Imaging Report ---
INDICATION: Supervision of normal . Anatomy scan. TECHNIQUE: Multiple real-time grayscale images were obtained over the gravid uterus. COMPARISON: None FINDINGS: A single live intrauterine gestation is visualized in cephalic presentation. heart tones measure 140 bpm. The placenta is anterior and not low lying. The CANDICE is normal measuring 16.0 cm. The cervix is closed and measures 6.1 cm in length. The four-chamber heart, outflow tracts, kidneys, stomach, brain, spine, profile, nose and lips, three-vessel cord, and cord insertion are visualized and have a normal appearance. Biometrical measurements are as follows: Biparietal 4.7 cm, age 20 weeks 2 days. Head circumference 17.2 cm, age 19 weeks 6 days. Abdominal circumference 14.2 cm, age 19 weeks 4 days. Femur length 3.3 cm, age 20 weeks 2 days. Sonographic estimate age: 20 weeks 0 days. Sonographic estimated date of delivery: 09/19/23. Estimated Weight: 318 gm (+/- 46 gm). LMP percentile: 38%. heart rate: 140 beats per minute. number: 1 of 1. IMPRESSION: 1. Single live intrauterine gestation measuring 20 weeks 0 days and estimated due date of 09/19/2023. These are concordant with the clinical dates. 2. Unremarkable anatomy scan. No abnormalities are seen. Dictated by: Dictated on workstation # [id number]
== END ==
LOC: RAD 08:38
PROVIDERS: ATTEND Nurse Practitioner Women's Health
DX: Z34.81 Encounter for supervision of other normal pregnancy, first trimester (principal); Z3A.20 20 weeks gestation of pregnancy
CPT/HCPCS: 76805